=== PATIENT | male | born 1950 | race Caucasian/White ===

== ENCOUNTER → 2020-12-11 | Outpatient (CLI) | payer MEDICARE, BC | LOC: CT 08:45 → MRI 09:30 | DX: G89.18 Other acute postprocedural pain (principal); M43.27 Fusion of spine, lumbosacral region; S32.028A Other fracture of second lumbar vertebra, initial encounter for closed fracture | CPT/HCPCS: 36415; 72131; 72158; 82565; A9577 ==

== ENCOUNTER → 2022-06-21 | Outpatient (CLI) | payer MEDICARE, BC | LOC: LAB 11:19 | DX: M48.05 Spinal stenosis, thoracolumbar region (principal); M96.1 Postlaminectomy syndrome, not elsewhere classified; M54.16 Radiculopathy, lumbar region; Z91.81 History of falling | CPT/HCPCS: 82565; 84520 ==

== ENCOUNTER → 2022-07-09 | Outpatient (CLI) | payer MEDICARE, BC | LOC: CT 06-27 14:35 | DX: M48.05 Spinal stenosis, thoracolumbar region (principal); M96.1 Postlaminectomy syndrome, not elsewhere classified; M54.16 Radiculopathy, lumbar region; Z91.81 History of falling | CPT/HCPCS: 72130; 72133; Q9966 ==